=== PATIENT | male | born 1995 | race Caucasian/White ===

== ENCOUNTER → 2017-03-28 | Outpatient (CLI) | payer OTHER ==
[~2017-03-28] MED LIST: ACHD5005 PO; CYCL10TA9 PO
--- NOTE | 2017-03-28 16:53 | Diagnostic Imaging Report ---
EXAMINATION: Three views of the cervical spine. INDICATION: Neck pain. FINDINGS: There is satisfactory alignment of the cervical spine. The vertebral body heights are preserved. Disc heights are also preserved. The alignment of the lateral masses of C1 and C2 is satisfactory. No significant degenerative changes or osteophyte formation seen. There is a normal appearance of the prevertebral soft tissues. IMPRESSION: Unremarkable exam. Dictated by: Dictated on workstation # [id number]
--- NOTE | 2017-03-28 16:56 | Diagnostic Imaging Report ---
AP and lateral views of the thoracic spine. INDICATION: Back pain. FINDINGS: There is satisfactory alignment of the thoracic spine. The vertebral body heights are preserved. Disc heights are also preserved. The paraspinal soft tissues appear unremarkable. IMPRESSION: Unremarkable exam. Dictated by: Dictated on workstation # [id number]
== END ==
LOC: RAD 16:22
PROVIDERS: ATTEND Nurse Practitioner Family
DX: M54.2 Cervicalgia (principal); M54.6 Pain in thoracic spine
CPT/HCPCS: 72040; 72072

== ENCOUNTER 2018-08-28 20:21 | Emergency (ER) | payer OTHER ==
[~2018-08-28] VITALS: Ht 193 cm; Wt 112.5 kg
[2018-08-28] MEDS ORDERED: HYDROcodone/APAP 7.5 MG/325 MG (LORTAB, LORCET PLUS) TABLET PO ONE (20:45)
[2018-08-28] MEDS ORDERED: predniSONE 20 MG TAB PO ONE (20:45)
[2018-08-28] MEDS ORDERED: ORPHENADRINE 60 MG/2 ML (NORFLEX) AMP IM ONE (20:45)
--- NOTE | 2018-08-28 20:47 | ED Back Pain ---
General Chief Complaint: Back Problems Stated Complaint: BACK PAIN Nursing Triage Note: pt presents to er with complaint of back pain. states he has had middle and lower back pain for a couple days. states he saw his pcp today and has an mri scheduled for monday. states the pain is severe and cannot make it till monday. Nursing Sepsis Screen: No Definite Risk Source of Information: Patient Exam Limitations: No Limitations History of Present Illness Date Seen by Provider: Aug 28, 2018 Time Seen by Provider: 20:25 Initial Comments Patient is a 23-year-old male presents to the emergency room with complaints of middle to lower back pain for the past 2 days. He was seen by Dr. Hdez his PCP today and has an outpatient MRI scheduled for this Monday08/31/18 but cannot make it until Monday due to the pain. He denies any loss of bowel or bladder, denies any saddle paresthesia. He denies any injury to the back other than chronic back pain from football injuries in the past. Timing/Duration: 3-4 Days Severity: Moderate Pain/Injury Location: Back Radiation: Lower Legs (numbness to left leg.) Associated Symptoms: muscle spasms, numbness in legs/feet, lower back pain; No loss of bladder control, No loss of bowel control Allergies and Home Medications Allergies Coded Allergies: Ibuprofen (Unverified Allergy, Severe, SWELLING OF FACE AND THROAT, ) Home Medications Cyclobenzaprine HCl 10 Mg Tablet, 10 MG PO Q8H PRN for MUSCLE CRAMPS Prescribed by: PAULINE DAVILA on 08/28/182126 Cyclobenzaprine Hcl 10 Mg Tablet, 1 EACH PO Q8HR PRN Prescribed by: ELIZABETH PRASAD on 12/28/102136 Hydrocodone Bit/Acetaminophen 1 Each Tablet, 1 EACH PO Q6H PRN Prescribed by: ELIZABETH PRASAD on 12/28/102136 Prednisone 20 Mg Tab, 40 MG PO DAILY Prescribed by: PAULINE DAVILA on 08/28/182126 Patient Home Medication List Home Medication List Reviewed: Yes Review of Systems Constitutional: no symptoms reported, see HPI Musculoskeletal: see HPI, back pain All Other Systems Reviewed Negative Unless Noted: Yes Past Jfsreub-Cyjuxh-Yigadc Hx Past Med/Social Hx: Reviewed Nursing Past Med/Soc Hx Patient Social History Alcohol Use: Denies Use Recreational Drug Use: No Type Used: Smokeless Tobacco Recent Foreign Travel: No Contact w/Someone Who Travel: No Recent Infectious Disease Expo: No Recent Hopitalizations: No Immunizations Up To Date Tetanus Booster (TDap): Unknown Seasonal Allergies Seasonal Allergies: No Past Medical History Surgeries: Yes (testicular) Orthopedic Respiratory: No Cardiac: No Neurological: No Genitourinary: No Gastrointestinal: Yes Gastroesophageal Reflux Musculoskeletal: No Endocrine: No HEENT: No Cancer: No Psychosocial: No Integumentary: No Family Medical History Reviewed Nursing Family Hx Physical Exam Vital Signs Vital Signs - First Documented 08/28/18 20:25 Pulse 118 Resp 20 B/P (MAP) 134/85 (101) Pulse Ox 98 O2 Delivery Room Air Capillary Refill : Less Than 3 Seconds Height, Weight, BMI Height: 6'4.00" Weight: 248lbs. oz. 112.741446ra; BMI Method:Stated General Appearance: No Apparent Distress, WD/WN Neck: Full Range of Motion, Normal Inspection, Non Tender, Supple Cardiovascular: Regular Rate, Rhythm, No Edema, No Gallop, No JVD, No Murmur, Normal Peripheral Pulses Respiratory: Chest Non Tender, Lungs Clear, Normal Breath Sounds, No Accessory Muscle Use, No Respiratory Distress, Accessory Muscle Use Back: Normal Inspection, No CVA Tenderness, Vertebral Tenderness (thoracic ) Extremity: Normal Capillary Refill Neurologic/Psychiatric: Alert, Oriented x3 Skin: Normal Color, Warm/Dry Progress/Results/Core Measures Results/Orders My Orders Orders - BERNOT,PAULINE Orphenadrine Injection (Norflex Injectio (08/28/18 20:45) Hydrocodone/Apap 7.5/325 Tab (Lortab 7. (08/28/18 20:45) Prednisone Tablet (Deltasone Tablet) (08/28/18 20:45) Rx-Hydrocodone/Apap 5-325 Mg (Rx-Vicodin (08/28/18 21:30) Im/Sub-Q Injection Non-Ab Ed (08/28/18 ) Medications Given in ED Vital Signs/I&O 08/28/18 08/28/18 20:25 21:40 Pulse 118 118 Resp 20 20 B/P (MAP) 134/85 (101) 134/85 (101) Pulse Ox 98 98 O2 Delivery Room Air Blood Pressure Mean: 101 Progress Progress Note : Time: 21:23 Progress Note I have seen and evaluated the patient. He has had improved pain after medication. He agrees with plans for discharge. Return precautions were given. Departure Impression Primary Impression: Back pain Disposition: 01 HOME, SELF-CARE Condition: Stable/Unchanged Departure-Patient Inst. Decision time for Depature: 21:23 Referrals: NABOR HDEZ MD (PCP/Family) Primary Care Physician Patient Instructions: Upper Back Pain (DC) Add. Discharge Instructions: Take medications as directed. Keep your appointment as scheduled for your MRI of her back on Monday. You may use Tylenol in addition to the muscle relaxers for pain relief. Follow-up with Dr. Smith within 1 week for recheck. Return back to the emergency room for any worsening symptoms, loss of bowel or bladder , numbness and tingling to your genital area, or any other concerns as needed. All discharge instructions reviewed with patient and/or family. Voiced understanding. Scripts Prednisone (Prednisone) 20 Mg Tab 40 MG PO DAILY for 4 Days, #8 TAB Prov: PAULINE DAVILA 08/28/18 Cyclobenzaprine HCl (Cyclobenzaprine HCl) 10 Mg Tablet 10 MG PO Q8H PRN for MUSCLE CRAMPS, #14 TAB Prov: PAULINE DAVILA 08/28/18 Work/School Note: Work Release Form Date Seen in the Emergency Department: Aug 28, 2018 Return to Work: Aug 30, 2018 Restrictions: No Restrictions PAULINE DAVILA Aug 28, 2018 20:46
[2018-08-28] MEDS ORDERED: CYCL10TA9 PO (21:27)
[2018-08-28] MEDS ORDERED: PRD20T PO (21:27)
[2018-08-28] MEDS ORDERED: RX-HYDROCODONE/APAP 5/325 MG #4 TAB PK PO PRN (21:30)
[2018-08-28 21:40] VITALS: BP 134/85
--- OUTSIDE RECORDS SUMMARY | 2018-08-29 09:22 | XMS REPORT | Continuity of Care Document ---
Demographics Preferred Language Unknown Marital Status Unknown Muslim Affiliation Unknown Race Unknown Ethnic Group Unknown Author Author [facility] Address Unknown Phone Unavailable Allergies Active Description Code Type Severity Reaction Onset Reported/Identified Relationship to Patient Clinical Status Yes MOTRIN 03159546 Drug Allergy Moderate N/A Medications There is no data. Problems Date Dx Coded Attending Type Code Diagnosis Diagnosed By 04/25/2008 079.99 VIRAL SYNDROME 07/04/2012 V04.81 FLU DX (3 YRS AND ABOVE, IM) 01/02/2013 V03.89 MENINGOCOCCAL DX 03/18/2016 S E860 Dehydration 03/18/2016 S E872 Acidosis 03/18/2016 P N178 Other acute kidney failure 03/18/2016 S [id number] Heat exhaustion, unspecified, initial encounter 03/18/2016 S [id number] Exposure to excessive natural heat, initial encounter 03/18/2016 S Y9269 Other specified industrial and construction area as the place of occurrence of the external cause Procedures There is no data. Results Test Result Range CBC(ABN) - 03/17/16 20:13 CBC(ABN) LAB WBC 11.1 K/uL 4.5 - 10.5 #[facility] 8.10 10^3ul 2.00 - 6.90 #[facility] 2.1 10^3ul 0.6 - 3.4 #MON 0.80 10^3ul 0.00 - 0.90 #EOS 0.0 10^3ul 0.0 - 0.7 #BAS 0.1 10^3ul 0.0 - 0.2 %[facility] 73.4 % 42.0 - 75.0 %LYM 18.5 % 20.0 - 45.0 %MON 7.4 % 0.0 - 12.0 %EOS 0.1 % 0.0 - 6.0 %BAS 0.6 % 0.0 - 1.0 RBC 5.85 M/uL 4.20 - 5.40 HEMOGLOBIN 16.6 g/dl 12.0 - 16.0 HEMATOCRIT 49 % 38 - 47 MCV 83.3 fL 80.0 - 96.0 MCH 28.3 pg 27.0 - 31.0 MCHC 34.0 g/dL 32.0 - 36.0 RDW 14 % 11 - 14 PLATELET 331 K/uL 150 - 450 MPV 8 fL 0 - 99 MANUAL DIFF NOT INDICATED RBC MORPH NOT INDICATED CPK TOTAL - 03/17/16 20:13 CK 713 U/L 49 - 300 MAGNESIUM - 03/17/16 20:13 MAGNESIUM 2.4 mg/dL 1.8 - 2.5 COMP MET PANEL - 03/17/16 20:13 GLUCOSE 85 mg/dL 74 - 118 BUN 22 mg/dL 8 - 26 AGE 20 yrs CREA-S 2.39 mg/dl 0.61 - 1.24 CALCIUM 10.0 mg/dL 8.5 - 10.3 BICARBONATE 21 mEq/L 22 - 33 SODIUM 137 mEq/L 136 - 144 POTASSIUM 3.6 MEQ/L 3.6 - 5.1 CHLORIDE 97 mEq/L 101 - 111 GFR NON AA 37 mL/min/BSA GFR AA 44 mL/min/BSA eGFR NON AA 37 mL/min/1.7 eGFR AA 44 mL/min/1.7 TOTAL PROTEIN 9.8 g/dL 6.5 - 8.4 ALBUMIN 5.4 g/dL 3.5 - 5.0 GLOBULIN 4.4 g/dL 1.5 - 3.0 A/G RATIO 1.2 1.5 - 2.5 T BILI 1.1 mg/dL 0.3 - 1.2 ALK PHOS 77 U/L 32 - 91 ALT 28 U/L 17 - 63 AST 27 U/L 15 - 41 COMP MET PANEL LAB MYOGLOBIN, QUANT - 03/17/16 20:13 MYOGLOBIN 605.0 ng/ml 17.4 - 106 CKMB - 03/17/16 20:13 CKMB 4.3 ng/mL 0.0 - 6.0 PROTIME(ABN) - 03/17/16 20:13 PROTIME 14.1 secs 10.2 - 12.2 INR 1.49 LDH - 03/17/16 20:13 LDH 264 U/L 98 - 192 PTT(ABN) - 03/17/16 20:13 PTT 30.8 secs 20.0 - 40.0 LACTIC ACID, PLASMA - 03/17/16 20:13 LACTIC ACID 4.3 mmol/L 0.4 - 2.2 UA - 03/17/16 21:12 GLUCOSE NEGATIVE UA LAB COLOR DARK STRAW APPEARANCE SLIGHT HAZY SPEC GRAVITY 1.025 WBC ESTERASE NEGATIVE NITRATE NEGATIVE PH 5.0 PROTEIN 2+ KETONES 1+ UROBILINOGEN 1+ BILIRUBIN 1+ BLOOD NEGATIVE WHITE CELLS NEGATIVE RED CELLS NEGATIVE CAST NONE SEEN CRYSTALS SEE BELOW SURFACE EPI 0-2 MUCUS NEGATIVE YEAST NEGATIVE BACTERIA NEGATIVE CALCIUM OX 3+ CBC(ABN) - 03/17/16 23:00 CBC(ABN) LAB WBC 10.4 K/uL 4.5 - 10.5 #[facility] 7.90 10^3ul 2.00 - 6.90 #LYM 1.7 10^3ul 0.6 - 3.4 #MON 0.70 10^3ul 0.00 - 0.90 #EOS 0.0 10^3ul 0.0 - 0.7 #BAS 0.0 10^3ul 0.0 - 0.2 %[facility] 76.4 % 42.0 - 75.0 %LYM 16.8 % 20.0 - 45.0 %MON 6.3 % 0.0 - 12.0 %EOS 0.1 % 0.0 - 6.0 %BAS 0.4 % 0.0 - 1.0 RBC 5.02 M/uL 4.20 - 5.40 HEMOGLOBIN 14.3 g/dl 12.0 - 16.0 HEMATOCRIT 42 % 38 - 47 MCV 83.3 fL 80.0 - 96.0 MCH 28.4 pg 27.0 - 31.0 MCHC 34.2 g/dL 32.0 - 36.0 RDW 13 % 11 - 14 PLATELET 247 K/uL 150 - 450 MPV 8 fL 0 - 99 MANUAL DIFF NOT INDICATED RBC MORPH NOT INDICATED COMP MET PANEL - 03/17/16 23:00 GLUCOSE 113 mg/dL 74 - 118 BUN 20 mg/dL 8 - 26 AGE 20 yrs CREA-S 1.54 mg/dl 0.61 - 1.24 CALCIUM 8.3 mg/dL 8.5 - 10.3 BICARBONATE 21 mEq/L 22 - 33 SODIUM 139 mEq/L 136 - 144 POTASSIUM 3.9 MEQ/L 3.6 - 5.1 CHLORIDE 105 mEq/L 101 - 111 GFR NON AA 61 mL/min/BSA GFR AA 74 mL/min/BSA eGFR NON AA >60 mL/min/1.7 eGFR AA >60 mL/min/1.7 TOTAL PROTEIN 7.6 g/dL 6.5 - 8.4 ALBUMIN 4.1 g/dL 3.5 - 5.0 GLOBULIN 3.5 g/dL 1.5 - 3.0 A/G RATIO 1.2 1.5 - 2.5 T BILI 0.7 mg/dL 0.3 - 1.2 ALK PHOS 58 U/L 32 - 91 ALT 26 U/L 17 - 63 AST 21 U/L 15 - 41 COMP MET PANEL LAB MYOGLOBIN, QUANT - 03/17/16 23:00 MYOGLOBIN 210.0 ng/ml 17.4 - 106 CPK TOTAL - 03/17/16 23:00 CK 570 U/L 49 - 300 LDH - 03/17/16 23:00 LDH 188 U/L 98 - 192 LACTIC ACID, PLASMA - 03/17/16 23:00 LACTIC ACID 2.4 mmol/L 0.4 - 2.2 UA - 03/17/16 23:05 GLUCOSE NEGATIVE UA LAB COLOR DARK STRAW APPEARANCE CLEAR SPEC GRAVITY 1.025 WBC ESTERASE NEGATIVE NITRATE NEGATIVE PH 5.0 PROTEIN NEGATIVE KETONES 2+ UROBILINOGEN 1+ BILIRUBIN NEGATIVE BLOOD NEGATIVE WHITE CELLS NEGATIVE RED CELLS NEGATIVE CAST NONE SEEN CRYSTALS SEE BELOW SURFACE EPI 0-2 MUCUS NEGATIVE YEAST NEGATIVE BACTERIA NEGATIVE CALCIUM OX 1+ UA - 03/18/16 05:31 GLUCOSE NEGATIVE UA LAB COLOR YELLOW APPEARANCE CLEAR SPEC GRAVITY 1.025 WBC ESTERASE NEGATIVE NITRATE NEGATIVE PH 5.0 PROTEIN NEGATIVE KETONES 1+ UROBILINOGEN NEGATIVE BILIRUBIN NEGATIVE BLOOD NEGATIVE WHITE CELLS NEGATIVE RED CELLS NEGATIVE CAST NONE SEEN CRYSTALS NONE SEEN SURFACE EPI 0-2 MUCUS NEGATIVE YEAST NEGATIVE BACTERIA NEGATIVE RENAL EPI 0-2 COMP MET PANEL - 03/18/16 06:00 GLUCOSE 98 mg/dL 74 - 118 BUN 16 mg/dL 8 - 26 AGE 20 yrs CREA-S 1.29 mg/dl 0.61 - 1.24 CALCIUM 8.0 mg/dL 8.5 - 10.3 BICARBONATE 24 mEq/L 22 - 33 SODIUM 141 mEq/L 136 - 144 POTASSIUM 3.8 MEQ/L 3.6 - 5.1 CHLORIDE 107 mEq/L 101 - 111 GFR NON AA 75 mL/min/BSA GFR AA 90 mL/min/BSA eGFR NON AA >60 mL/min/1.7 eGFR AA >60 mL/min/1.7 TOTAL PROTEIN 6.9 g/dL 6.5 - 8.4 ALBUMIN 3.6 g/dL 3.5 - 5.0 GLOBULIN 3.3 g/dL 1.5 - 3.0 A/G RATIO 1.1 1.5 - 2.5 T BILI 0.5 mg/dL 0.3 - 1.2 ALK PHOS 53 U/L 32 - 91 ALT 22 U/L 17 - 63 AST 18 U/L 15 - 41 COMP MET PANEL LAB MYOGLOBIN, QUANT - 03/18/16 06:00 MYOGLOBIN 122.0 ng/ml 17.4 - 106 LDH - 03/18/16 06:00 LDH 178 U/L 98 - 192 CPK TOTAL - 03/18/16 06:00 CK 595 U/L 49 - 300 CBC(ABN) - 03/18/16 06:00 CBC(ABN) LAB WBC 6.9 K/uL 4.5 - 10.5 #[facility] 3.60 10^3ul 2.00 - 6.90 #[facility] 2.6 10^3ul 0.6 - 3.4 #MON 0.60 10^3ul 0.00 - 0.90 #[facility] 0.1 10^3ul 0.0 - 0.7 #BAS 0.0 10^3ul 0.0 - 0.2 %[facility] 51.7 % 42.0 - 75.0 %[facility] 37.5 % 20.0 - 45.0 %MON 9.2 % 0.0 - 12.0 %EOS 1.1 % 0.0 - 6.0 %BAS 0.5 % 0.0 - 1.0 RBC 4.73 M/uL 4.20 - 5.40 HEMOGLOBIN 13.6 g/dl 12.0 - 16.0 HEMATOCRIT 40 % 38 - 47 MCV 84.7 fL 80.0 - 96.0 MCH 28.8 pg 27.0 - 31.0 MCHC 34.0 g/dL 32.0 - 36.0 RDW 14 % 11 - 14 PLATELET 223 K/uL 150 - 450 MPV 8 fL 0 - 99 MANUAL DIFF NOT INDICATED RBC MORPH NOT INDICATED LACTIC ACID, PLASMA - 03/18/16 06:00 LACTIC ACID 0.5 mmol/L 0.4 - 2.2 Encounters ACCT No. Visit Date/Time Discharge Status Pt. Type Provider Facility Loc./Unit Complaint [id number] 01/02/2013 13:19:00 Document Registration [id number] 03/17/2016 21:15:00 03/18/2016 11:46: 00 DIS Outpatient SENAIT LEYVA MD [facility] [id number] 03/17/2016 21:15:00 03/17/2016 23:59: [facility] [id number] 03/17/2016 21:15:00 03/17/2016 23:59: 59 CLS Outpatient SENAIT LEYVA MD [facility] [id number] 03/17/2016 19:57:16 03/17/2016 23:59: 59 [facility] [id number] 03/17/2016 19:45:00 03/17/2016 23:59: [facility] [id number] 03/17/2016 19:45:00 03/17/2016 23:59: [facility] [id number] 03/17/2016 19:45:00 03/17/2016 23:59: [facility] [id number] 03/17/2016 19:45:00 03/17/2016 23:59: 59 [facility] [id number] 03/17/2016 21:22:49 03/17/2016 21:22: 49 [facility] [id number] 03/17/2016 19:45:00 03/17/2016 21:15: 00 [facility] [id number] 03/18/2016 12:16:14 Document Registration [id number] 03/18/2016 12:12:26 Document Registration [id number] 03/18/2016 12:00:32 Document Registration [id number] 03/18/2016 12:00:10 Document Registration [id number] 03/18/2016 11:53:02 Document Registration [id number] 03/18/2016 11:52:39 Document Registration [id number] 03/18/2016 11:32:38 Document Registration [id number] 03/18/2016 11:32:26 Document Registration [id number] 03/18/2016 07:29:22 Document Registration [id number] 03/18/2016 05:59:50 Document Registration [id number] 03/17/2016 23:13:42 Document Registration [id number] 03/17/2016 23:12:52 Document Registration [id number] 03/17/2016 23:12:51 Document Registration [id number] 03/17/2016 22:56:13 Document Registration [id number] 03/17/2016 22:55:46 Document Registration [id number] 03/17/2016 22:52:49 Document Registration [id number] 03/17/2016 21:25:31 Document Registration [id number] 03/17/2016 21:15:00 Document Registration [id number] 03/17/2016 21:15:00 Document Registration [id number] 03/17/2016 21:15:00 Document Registration [id number] 03/17/2016 21:15:00 Document Registration [id number] 03/17/2016 21:15:00 Document Registration [id number] 03/17/2016 21:15:00 Document Registration [id number] 03/17/2016 21:15:00 Document Registration [id number] 03/17/2016 21:15:00 Document Registration [id number] 03/17/2016 21:15:00 Document Registration [id number] 03/17/2016 21:15:00 Document Registration [id number] 03/17/2016 21:15:00 Document Registration [id number] 03/17/2016 21:15:00 Document Registration [id number] 03/17/2016 21:15:00 Document Registration [id number] 03/17/2016 21:15:00 Document Registration [id number] 03/17/2016 21:15:00 Document Registration [id number] 03/17/2016 21:15:00 Document Registration [id number] 03/17/2016 21:15:00 Document Registration [id number] 03/17/2016 20:36:38 Document Registration [id number] 03/17/2016 20:05:00 Document Registration [id number] 03/17/2016 20:04:59 Document Registration [id number] 03/17/2016 19:51:43 Unknown [facility] [id number] 03/17/2016 19:45:00 Document Registration [id number] 03/17/2016 19:45:00 Document Registration [id number] 03/17/2016 19:45:00 Document Registration [id number] 03/17/2016 19:45:00 Document Registration [id number] 03/17/2016 19:45:00 Document Registration [id number] 03/17/2016 19:45:00 Document Registration [id number] 03/17/2016 19:45:00 Document Registration [id number] 03/17/2016 19:45:00 Document Registration [id number] 03/17/2016 19:45:00 Document Registration
== END 2018-08-28 21:40 | disposition home or self-care (01) ==
LOC: EDUNIT# 20:21 → ER 20:22
DX: M54.5 Low back pain (principal); K21.9 Gastro-esophageal reflux disease without esophagitis; Z88.6 Allergy status to analgesic agent
CPT/HCPCS: 96372; 99284

== ENCOUNTER → 2018-08-31 | Outpatient (CLI) | payer OTHER ==
[~2018-08-31] MED LIST changes: +PRD20T PO
--- NOTE | 2018-08-31 15:33 | Diagnostic Imaging Report ---
MRI THORACIC SPINE W/O CON TECHNIQUE: Multiplanar, multisequence MR imaging of the thoracic spine was performed without IV contrast. INDICATION: Mid back pain. COMPARISON: None available. FINDINGS: Normal kyphosis of the thoracic spine. No fracture or marrow replacing process. Multiple chronic Schmorl's nodes are present from T6 through T11. No features of active facet synovitis. Thoracic cord is normal in size and signal. Paravertebral musculature is normal in bulk. There are minimal disc protrusions at T6-T7, T7-T8, and T9-T10 which do not result in spinal stenosis or foraminal narrowing. No spinal stenosis or foraminal narrowing is present throughout the entire thoracic spine. IMPRESSION: 1. No fracture or malalignment. 2. Multilevel chronic Schmorl's nodes. 3. No spinal stenosis or foraminal narrowing. Dictated by: Dictated on workstation # [id number]
== END ==
LOC: RAD 13:37
PROVIDERS: ATTEND Family Medicine
DX: M51.44 Schmorl's nodes, thoracic region (principal); M54.14 Radiculopathy, thoracic region
CPT/HCPCS: 72146

== ENCOUNTER → 2020-09-30 | Outpatient (CLI) | payer BC ==
[~2020-09-30] MED LIST changes: +CATHETER FLUSH 10 ML SYR IV PRN; +HOLD METFORMIN - RECEIVED CONTRAST 20 ML VIAL IV SCH; +IOHEXOL 350 MG/ML 100 ML (OMNIPAQUE 350) VIAL IV ONE; +NS 100 ML (IVPB) BAG IV ONE
--- NOTE | 2020-09-30 10:26 | Diagnostic Imaging Report ---
EXAMINATION: CT Abdomen and Pelvis with intravenous contrast. TECHNIQUE: Multiple contiguous axial images were obtained through the abdomen and pelvis after the uneventful administration of intravenous contrast. All CT scans use one or more of the following dose optimizing techniques: automated exposure control, MA and/or KvP adjustment based on a patient size and exam type, or iterative reconstruction. HISTORY: Right upper quadrant pain. COMPARISON: None available. FINDINGS: Limited views of the lower thorax are unremarkable. The liver is normal without focal lesion. There is no biliary ductal dilation. Gallbladder is normal. Pancreas is normal. Spleen is normal. Adrenal glands are normal. The kidneys are normal. There is no hydronephrosis. Urinary bladder is normal. Visualized bowel is normal in caliber without obstruction or inflammation. No free fluid or air. No abdominal or pelvic lymphadenopathy. Aorta is normal in caliber without aneurysm. There are no suspicious osseous lesions. IMPRESSION: 1. No acute abnormality in the abdomen or pelvis. Dictated by: Dictated on workstation # [id number]
== END ==
LOC: RAD 09:53
PROVIDERS: ATTEND Nurse Practitioner Family
DX: R10.11 Right upper quadrant pain (principal); R10.31 Right lower quadrant pain; R11.0 Nausea
CPT/HCPCS: 74177

== ENCOUNTER → 2020-11-17 | Outpatient (CLI) | payer BC ==
[~2020-11-17] MED LIST changes: -CATHETER FLUSH 10 ML SYR IV PRN; -HOLD METFORMIN - RECEIVED CONTRAST 20 ML VIAL IV SCH; -IOHEXOL 350 MG/ML 100 ML (OMNIPAQUE 350) VIAL IV ONE; -NS 100 ML (IVPB) BAG IV ONE
--- NOTE | 2020-11-17 15:05 | Diagnostic Imaging Report ---
INDICATION: Palpable abnormality in the region of sacrum. Focused ultrasonography in the region of the sacrum is performed without evidence of underlying cystic or solid mass. No shadowing lesion or area of abnormal hyperemia is identified. IMPRESSION: No ultrasound evidence of abnormality in the region of sacral palpable lesion. Dictated by: Dictated on workstation # [id number]
--- NOTE | 2020-11-17 15:21 | Diagnostic Imaging Report ---
PROCEDURE: US Scrotum. TECHNIQUE: Multiple real-time grayscale images were obtained over the scrotum in various projections bilaterally. INDICATION: Right testicular mass. FINDINGS: The right testicle measures 3.7 x 2.2 x 3.0 cm and left testicle measures 4.2 x 1.5 x 2.2 cm. No testicular mass is identified. There is blood flow to both testes. There is a right epididymal head cyst measuring 17 mm x 12 mm x 15 mm. There is also a small right hydrocele. No varicocele is seen. The left epididymis is unremarkable. No hydrocele or varicocele on the left is identified. IMPRESSION: 1. No evidence of testicular mass or vascular compromise. 2. 17 mm right epididymal cyst. 3. Small right hydrocele. Dictated by: Dictated on workstation # [id number]
== END ==
LOC: RAD 13:46
PROVIDERS: ATTEND Family Medicine
DX: N50.3 Cyst of epididymis (principal); N43.3 Hydrocele, unspecified
CPT/HCPCS: 76870; 76999